=== PATIENT | male | born 1970 | race Caucasian/White ===

== ENCOUNTER → 2023-08-30 | Day surgery (SDC) | payer BC ==
[~2023-08-30] MED LIST: Lidocaine PF 2% (20 MG/ML) 5 ML VIAL ONE
== END ==
LOC: MSO 08:46
DX: K63.5 Polyp of colon (principal); G47.33 Obstructive sleep apnea (adult) (pediatric); Z87.891 Personal history of nicotine dependence
CPT/HCPCS: 00811; J2704; J7120